=== PATIENT | female | born 1960 | race Caucasian/White ===

== ENCOUNTER 2017-03-15 10:12 | Outpatient (CLI) | payer OTHER ==
[~2017-03-15 10:12] MED LIST: HYDR-569 PO; TRAM50TA2 PO
== END 2017-03-15 23:59 | disposition home or self-care (01) ==
LOC: RAD 10:12
PROVIDERS: ATTEND Family Medicine
DX: M47.812 Spondylosis without myelopathy or radiculopathy, cervical region (principal); M43.12 Spondylolisthesis, cervical region
CPT/HCPCS: 72050

== ENCOUNTER 2017-06-21 10:52 | Outpatient (CLI) | payer OTHER ==
[2017-06-21 12:06] LABS: BASOPHILS % (AUTO) 0.4 % (0-1); EOSINOPHILS # (AUTO) 0.1 X10'3 (0-0.9); EOSINOPHILS % (AUTO) 2.5 % (0-6); HEMATOCRIT 39.6 % (35.0-45.0); HEMOGLOBIN 13.6 g/dl (12.0-16.0); LYMPHOCYTES # (AUTO) 1.7 X10'3 (1.1-4.8); LYMPHOCYTES % (AUTO) 34.4 % (21-51); MEAN CORPUSCULAR HEMOGLOBIN 30.2 PG (27.0-31.0); MEAN CORPUSCULAR HGB CONC 34.4 % (33.0-36.5); MEAN CORPUSCULAR VOLUME 87.7 FL (78-98); MEAN PLATELET VOLUME 7.6 FL (7.4-10.4); MONOCYTES # (AUTO) 0.2 X10'3 (0-0.9); NEUTROPHILS # (AUTO) 2.9 X10'3 (1.8-7.7); NEUTROPHILS % (AUTO) 57.7 % (42-75); PLATELET COUNT 268 X10'3 (140-440); RED BLOOD COUNT 4.52 X10'6 (4.20-5.60); RED CELL DISTRIBUTION WIDTH 13.1 % (11.5-14.5); WHITE BLOOD COUNT 4.9 X10'3 (4.5-11.0)
[2017-06-21 12:45] LABS: ALANINE AMINOTRANSFERASE 46 U/L (12-78); ALBUMIN 3.8 G/DL (3.4-5.0); ALKALINE PHOSPHATASE 83 IU/L (46-116); ANION GAP 9 (8-16); ASPARTATE AMINO TRANSFERASE 27 U/L (10-37); BILIRUBIN,TOTAL 0.5 MG/DL (0.1-1.0); BLOOD UREA NITROGEN 19 MG/DL (7-18); BUN/CREATININE RATIO 22.1 (6.6-38.0); CALCIUM 9.2 MG/DL (8.5-10.1); CHLORIDE 106 MMOL/L (99-107); CREATININE 0.86 MG/DL (0.40-0.90); GLUCOSE 104 MG/DL (70-104); POTASSIUM 4.2 MMOL/L (3.5-5.1); SODIUM 142 MMOL/L (135-145); TOTAL CARBON DIOXIDE 26.8 MMOL/L (24-32); TOTAL PROTEIN 7.8 G/DL (6.4-8.2); eGFR 68 ML/MIN
[2017-06-21 12:57] LABS: C-REACTIVE PROTEIN 0.28 MG/DL (0.0-0.5); CHOL/HDL RATIO 3.8 (0.00-4.99); CHOLESTEROL 191 MG/DL (0-200); HDL CHOLESTEROL 50 MG/DL (35-60); LDL CHOLESTEROL 115 MG/DL (50-100); TRIGLYCERIDES 120 MG/DL (20-135)
[2017-06-22 11:17] LABS: MICROALB/CRT, RATIO <3.3 mg/g creat (0.0-30.0); VITAMIN D, 25-HYDROXY 26.7 ng/mL (30.0-100.0)
== END 2017-06-21 23:59 | disposition home or self-care (01) ==
LOC: LAB 10:52
PROVIDERS: ATTEND Family Medicine
DX: Z00.01 Encounter for general adult medical examination with abnormal findings (principal); K21.9 Gastro-esophageal reflux disease without esophagitis; I10 Essential (primary) hypertension; M47.812 Spondylosis without myelopathy or radiculopathy, cervical region
CPT/HCPCS: 36415; 80053; 80061; 82043; 82306; 82570; 82607; 82746; 84439; 84443; 84550; 85025; 85651; 86140

== ENCOUNTER 2017-11-19 16:19 | Outpatient (CLI) | payer OTHER ==
[~2017-11-19 16:19] MED LIST changes: +HYDR-4383 PO; -HYDR-569 PO
== END 2017-11-19 23:59 | disposition home or self-care (01) ==
LOC: 64 CT 16:19
PROVIDERS: ATTEND Family Medicine
DX: M50.30 Other cervical disc degeneration, unspecified cervical region (principal); M48.02 Spinal stenosis, cervical region; M47.812 Spondylosis without myelopathy or radiculopathy, cervical region
CPT/HCPCS: 72125

== ENCOUNTER 2018-03-12 08:28 | Outpatient (CLI) | payer OTHER ==
[2018-03-12 09:48] LABS: BASOPHILS % (AUTO) 0.4 % (0-1); EOSINOPHILS # (AUTO) 0.1 X10'3 (0-0.9); EOSINOPHILS % (AUTO) 3.8 % (0-6); HEMATOCRIT 37.5 % (35.0-45.0); HEMOGLOBIN 12.8 g/dl (12.0-16.0); LYMPHOCYTES # (AUTO) 1.3 X10'3 (1.1-4.8); LYMPHOCYTES % (AUTO) 34.2 % (21-51); MEAN CORPUSCULAR HEMOGLOBIN 29.8 PG (27.0-31.0); MEAN CORPUSCULAR HGB CONC 34.2 g/dL (33.0-36.5); MEAN PLATELET VOLUME 7.3 FL (7.4-10.4); MONOCYTES # (AUTO) 0.2 X10'3 (0-0.9); MONOCYTES % (AUTO) 6.1 % (2-12); NEUTROPHILS % (AUTO) 55.5 % (42-75); PLATELET COUNT 239 X10'3 (140-440); RED CELL DISTRIBUTION WIDTH 13.3 % (11.5-14.5); WHITE BLOOD COUNT 3.7 X10'3 (4.5-11.0)
[2018-03-12 10:21] LABS: ALANINE AMINOTRANSFERASE 59 U/L (12-78); ALBUMIN 3.8 G/DL (3.4-5.0); ALBUMIN/GLOBULIN RATIO 1.1 (1.1-1.5); ALKALINE PHOSPHATASE 88 IU/L (46-116); ANION GAP 6 (8-16); ASPARTATE AMINO TRANSFERASE 38 U/L (10-37); BILIRUBIN,TOTAL 0.5 MG/DL (0.1-1.0); BLOOD UREA NITROGEN 16 MG/DL (7-18); BUN/CREATININE RATIO 15.7 (6.6-38.0); CALCIUM 8.5 MG/DL (8.5-10.1); CHLORIDE 106 MMOL/L (99-107); CHOL/HDL RATIO 3.1 (0.00-4.99); CHOLESTEROL 175 MG/DL (0-200); CREATINE KINASE 165 U/L (26-192); CREATININE 1.02 MG/DL (0.40-0.90); GLUCOSE 105 MG/DL (70-104); HDL CHOLESTEROL 56 MG/DL (35-60); LDL CHOLESTEROL 110 MG/DL (50-100); POTASSIUM 4.6 MMOL/L (3.5-5.1); SODIUM 141 MMOL/L (135-145); TOTAL CARBON DIOXIDE 29.2 MMOL/L (24-32); TOTAL PROTEIN 7.2 G/DL (6.4-8.2); TRIGLYCERIDES 58 MG/DL (20-135); eGFR 56 ML/MIN
== END 2018-03-12 23:59 | disposition home or self-care (01) ==
LOC: LAB 08:28
PROVIDERS: ATTEND Family Medicine
DX: M51.37 Other intervertebral disc degeneration, lumbosacral region (principal); M48.07 Spinal stenosis, lumbosacral region; M25.551 Pain in right hip; M79.604 Pain in right leg; M79.605 Pain in left leg; M25.552 Pain in left hip; R29.898 Other symptoms and signs involving the musculoskeletal system; E78.00 Pure hypercholesterolemia, unspecified
CPT/HCPCS: 36415; 72110; 73521; 80053; 80061; 82550; 83735; 84550; 85025; 85651; 86140

== ENCOUNTER 2018-05-05 08:40 | Emergency (ER) | payer OTHER ==
[~2018-05-05] VITALS: Ht 172.7 cm; Wt 81.8 kg
[2018-05-05 08:51] VITALS: BP 140/86
== END 2018-05-05 09:42 | disposition home or self-care (01) ==
LOC: ER 08:41
DX: J02.9 Acute pharyngitis, unspecified (principal); J04.0 Acute laryngitis; R09.81 Nasal congestion; E11.9 Type 2 diabetes mellitus without complications; Z90.49 Acquired absence of other specified parts of digestive tract; Z98.890 Other specified postprocedural states; Z88.1 Allergy status to other antibiotic agents
CPT/HCPCS: 93005; 99283

== ENCOUNTER 2019-08-05 11:07 | Emergency (ER) | payer OTHER, BC ==
[~2019-08-05] VITALS: Ht 171.4 cm; Wt 88.6 kg
[~2019-08-05 11:07] MED LIST changes: +ALBU18HF2 INH
[2019-08-05 11:11] VITALS: BP 155/115
[2019-08-05] MEDS ORDERED: ketorolac tromethamine 15mg/ml inj. IM ONE (12:40)
[2019-08-05] MEDS ORDERED: CYCL-1 PO (12:40)
[2019-08-05] MEDS ORDERED: IBUP-1984 PO (12:40)
== END 2019-08-05 13:25 | disposition home or self-care (01) ==
LOC: ER 11:08
DX: R51 Headache (principal); M54.2 Cervicalgia; E11.9 Type 2 diabetes mellitus without complications; F41.9 Anxiety disorder, unspecified; Z90.49 Acquired absence of other specified parts of digestive tract; Z88.0 Allergy status to penicillin; Z88.1 Allergy status to other antibiotic agents; Z79.899 Other long term (current) drug therapy
CPT/HCPCS: 70450; 72125; 96372; 99285; J1885

== ENCOUNTER → 2019-08-28 | Outpatient (CLI) | payer BC, OTHER ==
[~2019-08-28] MED LIST changes: +CYCL-1 PO
[2019-08-28 12:11] LABS: CLARITY,URINE CLEAR (Clear); COLOR,URINE YELLOW (Yellow); GLUCOSE, URINE NEGATIVE (Neg); KETONES,URINE NEGATIVE (Neg); LEUKOCYTE ESTERASE ,URINE NEGATIVE (Neg); NITRITES, URINE NEGATIVE (Neg); OCCULT BLOOD,URINE NEGATIVE (Neg); PROTEIN,URINE NEGATIVE (Neg); UROBILINOGEN,URINE 0.2 E.U/dL (0.2-1.0)
[2019-08-28 12:12] LABS: UA COLLECTION TYPE CLN CATCH MIDSTREAM
[2019-08-28 12:14] LABS: BASOPHILS % (AUTO) 0.4 % (0-1); EOSINOPHILS # (AUTO) 0.2 X10'3 (0-0.9); EOSINOPHILS % (AUTO) 3.5 % (0-6); HEMATOCRIT 39.4 % (35.0-45.0); HEMOGLOBIN 13.3 g/dl (12.0-16.0); LYMPHOCYTES # (AUTO) 1.7 X10'3 (1.1-4.8); LYMPHOCYTES % (AUTO) 31.8 % (21-51); MEAN CORPUSCULAR HEMOGLOBIN 29.6 PG (27.0-31.0); MEAN CORPUSCULAR HGB CONC 33.8 g/dL (33.0-36.5); MEAN CORPUSCULAR VOLUME 87.7 FL (78-98); MEAN PLATELET VOLUME 7.8 FL (7.4-10.4); MONOCYTES # (AUTO) 0.3 X10'3 (0-0.9); MONOCYTES % (AUTO) 5.1 % (2-12); NEUTROPHILS # (AUTO) 3.1 X10'3 (1.8-7.7); NEUTROPHILS % (AUTO) 59.2 % (42-75); PLATELET COUNT 248 X10'3 (140-440); RED BLOOD COUNT 4.49 X10'6 (4.20-5.60); RED CELL DISTRIBUTION WIDTH 12.8 % (11.5-14.5); WHITE BLOOD COUNT 5.2 X10'3 (4.5-11.0)
[2019-08-28 12:39] LABS: ALANINE AMINOTRANSFERASE 46 U/L (12-78); ALBUMIN 3.9 G/DL (3.4-5.0); ALBUMIN/GLOBULIN RATIO 1.1 (1.1-1.5); ALKALINE PHOSPHATASE 66 IU/L (46-116); ANION GAP 7 (8-16); ASPARTATE AMINO TRANSFERASE 28 U/L (10-37); BILIRUBIN,TOTAL 0.6 MG/DL (0.1-1.0); BLOOD UREA NITROGEN 15 MG/DL (7-18); BUN/CREATININE RATIO 12.8 (6.6-38.0); C-REACTIVE PROTEIN 0.14 MG/DL (0.0-0.5); CALCIUM 8.8 MG/DL (8.5-10.1); CHLORIDE 107 MMOL/L (99-107); CHOL/HDL RATIO 4.4 (0.00-4.99); CHOLESTEROL 199 MG/DL (0-200); CREATININE 1.17 MG/DL (0.40-0.90); GLUCOSE 115 MG/DL (70-104); HDL CHOLESTEROL 45 MG/DL (35-60); LDL CHOLESTEROL 119 MG/DL (50-100); POTASSIUM 4.2 MMOL/L (3.5-5.1); SODIUM 142 MMOL/L (135-145); TOTAL PROTEIN 7.4 G/DL (6.4-8.2); TRIGLYCERIDES 181 MG/DL (20-135); eGFR 47 ML/MIN
== END | disposition home or self-care (01) ==
LOC: LAB 11:28
PROVIDERS: ATTEND Family Medicine
DX: Z00.00 Encounter for general adult medical examination without abnormal findings (principal); E78.00 Pure hypercholesterolemia, unspecified; I12.9 Hypertensive chronic kidney disease with stage 1 through stage 4 chronic kidney disease, or unspecified chronic kidney disease; N18.1 Chronic kidney disease, stage 1; E55.9 Vitamin D deficiency, unspecified; K21.9 Gastro-esophageal reflux disease without esophagitis; M54.5 Low back pain; M47.812 Spondylosis without myelopathy or radiculopathy, cervical region
CPT/HCPCS: 36415; 80053; 80061; 81003; 82306; 82607; 82746; 84439; 84443; 85025; 85651; 86140

== ENCOUNTER 2019-10-09 09:23 | Day surgery (SDC) | payer BC ==
[~2019-10-09] VITALS: Ht 172.7 cm; Wt 81.8 kg
[2019-10-09 09:29] VITALS: BP 133/72
[2019-10-09] MEDS ORDERED: BUS15T PO (09:39)
[2019-10-09] MEDS ORDERED: PARO10TA85 PO (09:40)
[2019-10-09] MEDS ORDERED: OMEP-50 PO (09:41)
[2019-10-09] MEDS ORDERED: GABA-534 PO (09:41)
[2019-10-09] MEDS ORDERED: SOY155CA (09:42)
[2019-10-09] MEDS ORDERED: LACT1CAP92 PO (09:42)
[2019-10-09] MEDS ORDERED: CHOL1POW2 PO (09:43)
[2019-10-09] MEDS ORDERED: fentaNYL/PF 50MCG/1 ML 2ML syringe ONE (09:52)
[2019-10-09] MEDS ORDERED: MIDAZolam 5mg/5ml vial ONE (09:53)
[2019-10-09 11:06] VITALS: BP 121/68
[2019-10-09 11:16] VITALS: BP 124/63
[2019-10-09 11:26] VITALS: BP 125/78
== END 2019-10-09 11:50 | disposition home or self-care (01) ==
LOC: GI LAB 09:23
PROVIDERS: ATTEND Internal Medicine Gastroenterology
DX: Z12.11 Encounter for screening for malignant neoplasm of colon (principal); C20 Malignant neoplasm of rectum; K63.89 Other specified diseases of intestine; K64.8 Other hemorrhoids
CPT/HCPCS: 45380; 99152; 99153; J2250; J3010; J7040; A4620

== ENCOUNTER 2019-11-25 08:28 | Outpatient (CLI) | payer BC ==
[~2019-11-25 08:28] MED LIST changes: -ALBU18HF2 INH; +BUS15T PO; +CHOL1POW2 PO; -CYCL-1 PO; +GABA-534 PO; -HYDR-4383 PO; +LACT1CAP92 PO; +OMEP-50 PO; +PARO10TA85 PO; +SOY155CA; -TRAM50TA2 PO
[2019-11-25 09:16] LABS: BASOPHILS % (AUTO) 0.6 % (0-1); EOSINOPHILS # (AUTO) 0.1 X10'3 (0-0.9); EOSINOPHILS % (AUTO) 2.9 % (0-6); HEMATOCRIT 39.3 % (35.0-45.0); HEMOGLOBIN 13.1 g/dl (12.0-16.0); LYMPHOCYTES # (AUTO) 1.4 X10'3 (1.1-4.8); LYMPHOCYTES % (AUTO) 27.9 % (21-51); MEAN CORPUSCULAR HEMOGLOBIN 29.4 PG (27.0-31.0); MEAN CORPUSCULAR HGB CONC 33.5 g/dL (33.0-36.5); MEAN PLATELET VOLUME 7.5 FL (7.4-10.4); MONOCYTES # (AUTO) 0.3 X10'3 (0-0.9); MONOCYTES % (AUTO) 5.9 % (2-12); NEUTROPHILS # (AUTO) 3.2 X10'3 (1.8-7.7); NEUTROPHILS % (AUTO) 62.7 % (42-75); PLATELET COUNT 269 X10'3 (140-440); RED BLOOD COUNT 4.47 X10'6 (4.20-5.60); RED CELL DISTRIBUTION WIDTH 13.3 % (11.5-14.5); WHITE BLOOD COUNT 5.1 X10'3 (4.5-11.0)
[2019-11-25 09:25] LABS: ALANINE AMINOTRANSFERASE 40 U/L (12-78); ALBUMIN 3.8 G/DL (3.4-5.0); ALBUMIN/GLOBULIN RATIO 1.1 (1.1-1.5); ALKALINE PHOSPHATASE 72 IU/L (46-116); ANION GAP 5 (8-16); ASPARTATE AMINO TRANSFERASE 25 U/L (10-37); BILIRUBIN,TOTAL 0.5 MG/DL (0.1-1.0); BLOOD UREA NITROGEN 15 MG/DL (7-18); BUN/CREATININE RATIO 12.3 (6.6-38.0); CALCIUM 9.3 MG/DL (8.5-10.1); CHLORIDE 105 MMOL/L (99-107); CREATININE 1.22 MG/DL (0.40-0.90); GLUCOSE 120 MG/DL (70-104); POTASSIUM 4.2 MMOL/L (3.5-5.1); SODIUM 142 MMOL/L (135-145); TOTAL CARBON DIOXIDE 31.6 MMOL/L (24-32); TOTAL PROTEIN 7.4 G/DL (6.4-8.2); eGFR 45 ML/MIN
[2019-11-25 11:25] LABS: HIV ANTIBODY 1&2 RAPID NON-REACTIVE (Neg)
[2019-11-26 12:24] LABS: HBSAG SCREEN Negative (Negative); HEP B CORE AB, TOT Negative (Negative)
== END 2019-11-25 23:59 | disposition home or self-care (01) ==
LOC: LAB 08:28
PROVIDERS: ATTEND Internal Medicine Hematology & Oncology
DX: C21.1 Malignant neoplasm of anal canal (principal)
CPT/HCPCS: 36415; 80053; 85025; 86703; 86704; 86705; 86706; 87340

== ENCOUNTER → 2019-12-11 | Day surgery (SDC) | payer BC ==
[~2019-12-11] VITALS: Ht 172.7 cm; Wt 87.6 kg
[2019-12-11 09:06] LABS: BASOPHILS % (AUTO) 0.7 % (0-1); EOSINOPHILS # (AUTO) 0.2 X10'3 (0-0.9); EOSINOPHILS % (AUTO) 3.7 % (0-6); HEMATOCRIT 37.5 % (35.0-45.0); HEMOGLOBIN 12.5 g/dl (12.0-16.0); LYMPHOCYTES # (AUTO) 1.5 X10'3 (1.1-4.8); LYMPHOCYTES % (AUTO) 29.2 % (21-51); MEAN CORPUSCULAR HEMOGLOBIN 29.5 PG (27.0-31.0); MEAN CORPUSCULAR HGB CONC 33.4 g/dL (33.0-36.5); MEAN CORPUSCULAR VOLUME 88.4 FL (78-98); MEAN PLATELET VOLUME 7.7 FL (7.4-10.4); MONOCYTES # (AUTO) 0.3 X10'3 (0-0.9); MONOCYTES % (AUTO) 6.1 % (2-12); NEUTROPHILS # (AUTO) 3.1 X10'3 (1.8-7.7); NEUTROPHILS % (AUTO) 60.3 % (42-75); PLATELET COUNT 247 X10'3 (140-440); RED BLOOD COUNT 4.25 X10'6 (4.20-5.60); WHITE BLOOD COUNT 5.2 X10'3 (4.5-11.0)
[2019-12-11 09:27] LABS: ALANINE AMINOTRANSFERASE 30 U/L (12-78); ALBUMIN 3.5 G/DL (3.4-5.0); ALKALINE PHOSPHATASE 64 IU/L (46-116); ANION GAP 6 (8-16); ASPARTATE AMINO TRANSFERASE 18 U/L (10-37); BILIRUBIN,TOTAL 0.4 MG/DL (0.1-1.0); BLOOD UREA NITROGEN 19 MG/DL (7-18); BUN/CREATININE RATIO 17.6 (6.6-38.0); CHLORIDE 104 MMOL/L (99-107); CREATININE 1.08 MG/DL (0.40-0.90); GLUCOSE 129 MG/DL (70-104); SODIUM 138 MMOL/L (135-145); TOTAL CARBON DIOXIDE 28.5 MMOL/L (24-32); TOTAL PROTEIN 7.1 G/DL (6.4-8.2); eGFR 52 ML/MIN
== END | disposition home or self-care (01) ==
LOC: SSTAY O 06:54
PROVIDERS: ATTEND Internal Medicine Hematology & Oncology
DX: C21.1 Malignant neoplasm of anal canal (principal); Z88.1 Allergy status to other antibiotic agents
CPT/HCPCS: 36415; 36573; 80053; 85025

== ENCOUNTER 2020-02-19 14:25 | Outpatient (CLI) | payer BC | END 2020-02-19 23:59 | disposition home or self-care (01) | LOC: CARD DIAG 14:25 | PROVIDERS: ATTEND Internal Medicine Hematology & Oncology | DX: C21.1 Malignant neoplasm of anal canal (principal); I08.3 Combined rheumatic disorders of mitral, aortic and tricuspid valves | CPT/HCPCS: 93306 ==

== ENCOUNTER 2020-03-16 09:19 | Outpatient (CLI) | payer BC | END 2020-03-16 23:59 | disposition home or self-care (01) | LOC: RT 09:19 | PROVIDERS: ATTEND Internal Medicine Hematology & Oncology | DX: R06.02 Shortness of breath (principal); C21.1 Malignant neoplasm of anal canal | CPT/HCPCS: 94010; 94727; 94729 ==

== ENCOUNTER 2020-05-20 13:31 | Outpatient (CLI) | payer BC ==
[2020-05-20 14:00] LABS: BASOPHILS % (AUTO) 0.5 % (0-1); EOSINOPHILS # (AUTO) 0.5 X10'3 (0-0.9); EOSINOPHILS % (AUTO) 12.2 % (0-6); HEMATOCRIT 37.8 % (35.0-45.0); HEMOGLOBIN 12.7 g/dl (12.0-16.0); LYMPHOCYTES % (AUTO) 22.7 % (21-51); MEAN CORPUSCULAR HEMOGLOBIN 30.9 PG (27.0-31.0); MEAN CORPUSCULAR HGB CONC 33.6 g/dL (33.0-36.5); MEAN CORPUSCULAR VOLUME 91.9 FL (78-98); MEAN PLATELET VOLUME 7.2 FL (7.4-10.4); MONOCYTES # (AUTO) 0.3 X10'3 (0-0.9); MONOCYTES % (AUTO) 6.7 % (2-12); NEUTROPHILS # (AUTO) 2.4 X10'3 (1.8-7.7); NEUTROPHILS % (AUTO) 57.9 % (42-75); PLATELET COUNT 224 X10'3 (140-440); RED BLOOD COUNT 4.12 X10'6 (4.20-5.60); RED CELL DISTRIBUTION WIDTH 12.8 % (11.5-14.5); WHITE BLOOD COUNT 4.2 X10'3 (4.5-11.0)
[2020-05-20 14:14] LABS: ALANINE AMINOTRANSFERASE 27 U/L (12-78); ALBUMIN 3.7 G/DL (3.4-5.0); ALBUMIN/GLOBULIN RATIO 1.1 (1.1-1.5); ALKALINE PHOSPHATASE 74 IU/L (46-116); ANION GAP 6 (8-16); ASPARTATE AMINO TRANSFERASE 19 U/L (10-37); BILIRUBIN,TOTAL 0.3 MG/DL (0.1-1.0); BLOOD UREA NITROGEN 19 MG/DL (7-18); BUN/CREATININE RATIO 16.7 (6.6-38.0); CALCIUM 9.1 MG/DL (8.5-10.1); CHLORIDE 106 MMOL/L (99-107); CREATININE 1.14 MG/DL (0.40-0.90); GLUCOSE 123 MG/DL (70-104); POTASSIUM 4.5 MMOL/L (3.5-5.1); SODIUM 141 MMOL/L (135-145); TOTAL CARBON DIOXIDE 28.7 MMOL/L (24-32); TOTAL PROTEIN 7.1 G/DL (6.4-8.2); eGFR 49 ML/MIN
== END 2020-05-20 23:59 | disposition home or self-care (01) ==
LOC: LAB 13:31
PROVIDERS: ATTEND Internal Medicine Hematology & Oncology
DX: C21.1 Malignant neoplasm of anal canal (principal)
CPT/HCPCS: 36415; 80053; 82378; 85025

== ENCOUNTER 2020-08-19 10:35 | Outpatient (CLI) | payer BC ==
[2020-08-19 11:18] LABS: EOSINOPHILS # (AUTO) 0.1 X10'3 (0-0.9); HEMOGLOBIN 12.9 g/dl (12.0-16.0); MONOCYTES # (AUTO) 0.2 X10'3 (0-0.9); NEUTROPHILS # (AUTO) 2.4 X10'3 (1.8-7.7)
[2020-08-19 11:20] LABS: BASOPHILS % (AUTO) 0.7 % (0-1); EOSINOPHILS % (AUTO) 2.4 % (0-6); HEMATOCRIT 36.7 % (35.0-45.0); LYMPHOCYTES % (AUTO) 26.4 % (21-51); MEAN CORPUSCULAR HEMOGLOBIN 31.5 PG (27.0-31.0); MEAN CORPUSCULAR HGB CONC 35.1 g/dL (33.0-36.5); MEAN CORPUSCULAR VOLUME 89.7 FL (78-98); MEAN PLATELET VOLUME 7.2 FL (7.4-10.4); MONOCYTES % (AUTO) 6.1 % (2-12); NEUTROPHILS % (AUTO) 64.4 % (42-75); PLATELET COUNT 195 X10'3 (140-440); RED CELL DISTRIBUTION WIDTH 13.8 % (11.5-14.5); WHITE BLOOD COUNT 3.8 X10'3 (4.5-11.0)
[2020-08-19 11:34] LABS: ALANINE AMINOTRANSFERASE 26 U/L (12-78); ALBUMIN 3.8 G/DL (3.4-5.0); ALBUMIN/GLOBULIN RATIO 1.1 (1.1-1.5); ALKALINE PHOSPHATASE 63 IU/L (46-116); ANION GAP 8 (8-16); ASPARTATE AMINO TRANSFERASE 18 U/L (10-37); BILIRUBIN,TOTAL 0.5 MG/DL (0.1-1.0); BLOOD UREA NITROGEN 20 MG/DL (7-18); BUN/CREATININE RATIO 19.2 (6.6-38.0); CHLORIDE 108 MMOL/L (99-107); CREATININE 1.04 MG/DL (0.40-0.90); GLUCOSE 97 MG/DL (70-104); SODIUM 144 MMOL/L (135-145); TOTAL CARBON DIOXIDE 28.3 MMOL/L (24-32); TOTAL PROTEIN 7.4 G/DL (6.4-8.2); eGFR 54 ML/MIN
== END 2020-08-19 23:59 | disposition home or self-care (01) ==
LOC: LAB 10:35
DX: C21.1 Malignant neoplasm of anal canal (principal)
CPT/HCPCS: 80053; 82378; 85025

== ENCOUNTER 2020-10-31 09:10 | Day surgery (SDC) | payer BC ==
[~2020-10-31] VITALS: Ht 172.7 cm; Wt 83.1 kg
[2020-10-31] MEDS ORDERED: fentaNYL/PF 50MCG/1 ML 2ML syringe ONE (09:20)
[2020-10-31] MEDS ORDERED: MIDAZolam 1 MG/ML 5ML VIAL ONE (09:20)
[2020-10-31 09:42] VITALS: BP 155/89
[2020-10-31 10:50] VITALS: BP 129/77
[2020-10-31 10:59] VITALS: BP 132/68
[2020-10-31 11:09] VITALS: BP 125/66
[2020-10-31 11:19] VITALS: BP 136/74
== END 2020-10-31 11:35 | disposition home or self-care (01) ==
LOC: GI LAB 09:10
PROVIDERS: ATTEND Internal Medicine Gastroenterology
DX: Z09 Encounter for follow-up examination after completed treatment for conditions other than malignant neoplasm (principal); D12.0 Benign neoplasm of cecum; Z85.048 Personal history of other malignant neoplasm of rectum, rectosigmoid junction, and anus
CPT/HCPCS: 45390; 99152; 99153; C1773; J2250; J3010; J7040; Z7512; 45335; 45385; A4620

== ENCOUNTER → 2020-12-05 | Outpatient (CLI) | payer BC ==
[~2020-12-05] MED LIST changes: -CHOL1POW2 PO; -LACT1CAP92 PO; -SOY155CA
[2020-12-05 12:52] LABS: BASOPHILS % (AUTO) 0.3 % (0-1); EOSINOPHILS # (AUTO) 0.1 X10'3 (0-0.9); EOSINOPHILS % (AUTO) 1.9 % (0-6); HEMATOCRIT 34.9 % (35.0-45.0); HEMOGLOBIN 12.2 g/dl (12.0-16.0); LYMPHOCYTES # (AUTO) 0.9 X10'3 (1.1-4.8); LYMPHOCYTES % (AUTO) 23.7 % (21-51); MEAN CORPUSCULAR HEMOGLOBIN 31.4 PG (27.0-31.0); MEAN CORPUSCULAR VOLUME 89.8 FL (78-98); MEAN PLATELET VOLUME 6.8 FL (7.4-10.4); MONOCYTES # (AUTO) 0.2 X10'3 (0-0.9); NEUTROPHILS # (AUTO) 2.7 X10'3 (1.8-7.7); NEUTROPHILS % (AUTO) 69.1 % (42-75); PLATELET COUNT 218 X10'3 (140-440); RED BLOOD COUNT 3.88 X10'6 (4.20-5.60); RED CELL DISTRIBUTION WIDTH 13.2 % (11.5-14.5); WHITE BLOOD COUNT 3.9 X10'3 (4.5-11.0)
[2020-12-05 13:07] LABS: ALANINE AMINOTRANSFERASE 31 U/L (12-78); ALBUMIN 3.5 G/DL (3.4-5.0); ALBUMIN/GLOBULIN RATIO 0.9 (1.1-1.5); ALKALINE PHOSPHATASE 71 IU/L (46-116); ANION GAP 7 (8-16); ASPARTATE AMINO TRANSFERASE 19 U/L (10-37); BILIRUBIN,TOTAL 0.4 MG/DL (0.1-1.0); BLOOD UREA NITROGEN 15 MG/DL (7-18); BUN/CREATININE RATIO 13.6 (6.6-38.0); CALCIUM 8.6 MG/DL (8.5-10.1); CHLORIDE 107 MMOL/L (99-107); GLUCOSE 111 MG/DL (70-104); POTASSIUM 4.2 MMOL/L (3.5-5.1); SODIUM 144 MMOL/L (135-145); TOTAL CARBON DIOXIDE 30.3 MMOL/L (24-32); TOTAL PROTEIN 7.2 G/DL (6.4-8.2); eGFR 50 ML/MIN
== END | disposition home or self-care (01) ==
LOC: LAB 12:24
PROVIDERS: ATTEND Internal Medicine Hematology & Oncology
DX: C21.1 Malignant neoplasm of anal canal (principal)
CPT/HCPCS: 36415; 80053; 82378; 85025

== ENCOUNTER 2021-03-06 09:21 | Emergency (ER) | payer BC, OTHER ==
[~2021-03-06] VITALS: Ht 172.7 cm; Wt 86.9 kg
[2021-03-06 09:27] VITALS: BP 164/88
[2021-03-06] MEDS ORDERED: CYCL-1 PO (10:00)
[2021-03-06] MEDS ORDERED: ketorolac tromethamine 15mg/ml inj. IM ONE (10:05)
== END 2021-03-06 10:28 | disposition home or self-care (01) ==
LOC: ER 09:22
DX: S39.012A Strain of muscle, fascia and tendon of lower back, initial encounter (principal); M54.89 Other dorsalgia; R20.0 Anesthesia of skin; E11.9 Type 2 diabetes mellitus without complications; F41.9 Anxiety disorder, unspecified; Z90.49 Acquired absence of other specified parts of digestive tract; Z98.890 Other specified postprocedural states; Z88.1 Allergy status to other antibiotic agents; Z88.8 Allergy status to other drugs, medicaments and biological substances; Z79.899 Other long term (current) drug therapy; X58.XXXA Exposure to other specified factors, initial encounter; Y93.89 Activity, other specified; Y92.89 Other specified places as the place of occurrence of the external cause; Y99.8 Other external cause status
CPT/HCPCS: 96372; 99283; J1885

== ENCOUNTER 2021-03-21 05:45 | Outpatient (CLI) | payer BC ==
[~2021-03-21 05:45] MED LIST changes: +CYCL-1 PO; -OMEP-50 PO; +OMEP20CA16 PO
[2021-03-21 08:27] LABS: BASOPHILS % (AUTO) 0.2 % (0-1); EOSINOPHILS % (AUTO) 1.2 % (0-6); HEMATOCRIT 35.3 % (35.0-45.0); HEMOGLOBIN 12.4 g/dl (12.0-16.0); LYMPHOCYTES # (AUTO) 0.7 X10'3 (1.1-4.8); MEAN CORPUSCULAR HEMOGLOBIN 30.9 PG (27.0-31.0); MEAN CORPUSCULAR HGB CONC 35.1 g/dL (33.0-36.5); MEAN PLATELET VOLUME 6.8 FL (7.4-10.4); MONOCYTES # (AUTO) 0.2 X10'3 (0-0.9); MONOCYTES % (AUTO) 6.2 % (2-12); NEUTROPHILS # (AUTO) 2.7 X10'3 (1.8-7.7); NEUTROPHILS % (AUTO) 73.4 % (42-75); PLATELET COUNT 256 X10'3 (140-440); RED BLOOD COUNT 4.01 X10'6 (4.20-5.60); RED CELL DISTRIBUTION WIDTH 12.7 % (11.5-14.5); WHITE BLOOD COUNT 3.7 X10'3 (4.5-11.0)
[2021-03-21 10:48] LABS: ALANINE AMINOTRANSFERASE 57 U/L (12-78); ALBUMIN 3.7 G/DL (3.4-5.0); ALKALINE PHOSPHATASE 95 IU/L (46-116); ANION GAP 8 (8-16); ASPARTATE AMINO TRANSFERASE 21 U/L (10-37); BILIRUBIN,TOTAL 0.7 MG/DL (0.1-1.0); BLOOD UREA NITROGEN 16 MG/DL (7-18); BUN/CREATININE RATIO 17.2 (6.6-38.0); CHLORIDE 107 MMOL/L (99-107); CREATININE 0.93 MG/DL (0.40-0.90); GLUCOSE 111 MG/DL (70-104); POTASSIUM 4.6 MMOL/L (3.5-5.1); SODIUM 144 MMOL/L (135-145); TOTAL PROTEIN 7.3 G/DL (6.4-8.2); eGFR 61 ML/MIN
== END 2021-03-21 23:59 | disposition home or self-care (01) ==
LOC: LAB 05:45
PROVIDERS: ATTEND Internal Medicine Hematology & Oncology
DX: C21.1 Malignant neoplasm of anal canal (principal)
CPT/HCPCS: 36415; 80053; 82378; 85025

== ENCOUNTER 2021-06-20 05:42 | Outpatient (CLI) | payer BC ==
[2021-06-20 14:50] LABS: BASOPHILS % (AUTO) 0.4 % (0-1); EOSINOPHILS # (AUTO) 0.1 X10'3 (0-0.9); EOSINOPHILS % (AUTO) 3.4 % (0-6); HEMATOCRIT 35.4 % (35.0-45.0); LYMPHOCYTES % (AUTO) 24.3 % (21-51); MEAN CORPUSCULAR HEMOGLOBIN 30.3 PG (27.0-31.0); MEAN CORPUSCULAR HGB CONC 33.8 g/dL (33.0-36.5); MEAN CORPUSCULAR VOLUME 89.4 FL (78-98); MEAN PLATELET VOLUME 7.1 FL (7.4-10.4); MONOCYTES # (AUTO) 0.3 X10'3 (0-0.9); MONOCYTES % (AUTO) 6.4 % (2-12); NEUTROPHILS # (AUTO) 2.6 X10'3 (1.8-7.7); NEUTROPHILS % (AUTO) 65.5 % (42-75); PLATELET COUNT 247 X10'3 (140-440); RED BLOOD COUNT 3.96 X10'6 (4.20-5.60); RED CELL DISTRIBUTION WIDTH 13.6 % (11.5-14.5)
[2021-06-20 15:02] LABS: ALANINE AMINOTRANSFERASE 43 U/L (12-78); ALBUMIN/GLOBULIN RATIO 1.2 (1.1-1.5); ALKALINE PHOSPHATASE 75 IU/L (46-116); ANION GAP 6 (8-16); ASPARTATE AMINO TRANSFERASE 23 U/L (10-37); BILIRUBIN,TOTAL 0.3 MG/DL (0.1-1.0); BLOOD UREA NITROGEN 18 MG/DL (7-18); BUN/CREATININE RATIO 17.6 (6.6-38.0); CALCIUM 9.2 MG/DL (8.5-10.1); CHLORIDE 108 MMOL/L (99-107); CREATININE 1.02 MG/DL (0.40-0.90); GLUCOSE 129 MG/DL (70-104); POTASSIUM 4.2 MMOL/L (3.5-5.1); SODIUM 143 MMOL/L (135-145); TOTAL PROTEIN 7.3 G/DL (6.4-8.2); eGFR 55 ML/MIN
== END 2021-06-20 23:59 | disposition home or self-care (01) ==
LOC: LAB 05:42
PROVIDERS: ATTEND Internal Medicine Hematology & Oncology
DX: C21.1 Malignant neoplasm of anal canal (principal)
CPT/HCPCS: 36415; 80053; 82378; 85025

== ENCOUNTER 2021-07-21 11:20 | Outpatient (CLI) | payer BC | END 2021-07-21 23:59 | disposition home or self-care (01) | LOC: LAB 11:20 | PROVIDERS: ATTEND Internal Medicine Hematology & Oncology | DX: C21.1 Malignant neoplasm of anal canal (principal) | CPT/HCPCS: 36415; 82378 ==

== ENCOUNTER 2021-09-29 08:59 | Outpatient (CLI) | payer BC ==
[2021-09-29 10:01] LABS: BASOPHILS % (AUTO) 0.3 % (0-1); EOSINOPHILS # (AUTO) 0.1 X10'3 (0-0.9); EOSINOPHILS % (AUTO) 2.5 % (0-6); HEMATOCRIT 37.1 % (35.0-45.0); HEMOGLOBIN 12.6 g/dl (12.0-16.0); LYMPHOCYTES # (AUTO) 0.7 X10'3 (1.1-4.8); LYMPHOCYTES % (AUTO) 23.5 % (21-51); MEAN CORPUSCULAR HEMOGLOBIN 30.9 PG (27.0-31.0); MEAN CORPUSCULAR HGB CONC 34.1 g/dL (33.0-36.5); MEAN CORPUSCULAR VOLUME 90.7 FL (78-98); MONOCYTES # (AUTO) 0.2 X10'3 (0-0.9); MONOCYTES % (AUTO) 5.6 % (2-12); NEUTROPHILS # (AUTO) 2.2 X10'3 (1.8-7.7); NEUTROPHILS % (AUTO) 68.1 % (42-75); PLATELET COUNT 233 X10'3 (140-440); RED BLOOD COUNT 4.09 X10'6 (4.20-5.60); RED CELL DISTRIBUTION WIDTH 13.7 % (11.5-14.5); WHITE BLOOD COUNT 3.2 X10'3 (4.5-11.0)
[2021-09-29 10:22] LABS: ALANINE AMINOTRANSFERASE 67 U/L (12-78); ALBUMIN 3.8 G/DL (3.4-5.0); ALBUMIN/GLOBULIN RATIO 1.1 (1.1-1.5); ALKALINE PHOSPHATASE 99 IU/L (46-116); ANION GAP 9 (8-16); ASPARTATE AMINO TRANSFERASE 21 U/L (10-37); BILIRUBIN,TOTAL 0.3 MG/DL (0.1-1.0); BLOOD UREA NITROGEN 18 MG/DL (7-18); BUN/CREATININE RATIO 15.1 (6.6-38.0); C-REACTIVE PROTEIN 0.38 MG/DL (0.0-0.5); CALCIUM 9.1 MG/DL (8.5-10.1); CHLORIDE 105 MMOL/L (99-107); CHOL/HDL RATIO 4.4 (0.00-4.99); CHOLESTEROL 212 MG/DL (0-200); CREATININE 1.19 MG/DL (0.40-0.90); GLUCOSE 144 MG/DL (70-104); HDL CHOLESTEROL 48 MG/DL (35-60); LDL CHOLESTEROL 114 MG/DL (50-100); POTASSIUM 3.8 MMOL/L (3.5-5.1); SODIUM 143 MMOL/L (135-145); TOTAL CARBON DIOXIDE 28.6 MMOL/L (24-32); TOTAL PROTEIN 7.4 G/DL (6.4-8.2); TRIGLYCERIDES 206 MG/DL (20-135); eGFR 46 ML/MIN
[2021-09-30 13:11] LABS: HEPATITIS C ANTIBODY <0.1 s/co ratio (0.0-0.9); MICROALB/CRT, RATIO 5 mg/g creat (0-29)
== END 2021-09-29 23:59 | disposition home or self-care (01) ==
LOC: LAB 08:59
PROVIDERS: ATTEND Family Medicine
DX: Z11.59 Encounter for screening for other viral diseases (principal); E78.5 Hyperlipidemia, unspecified; R53.83 Other fatigue; K21.9 Gastro-esophageal reflux disease without esophagitis; I10 Essential (primary) hypertension; E55.9 Vitamin D deficiency, unspecified
CPT/HCPCS: 36415; 80053; 80061; 82043; 82306; 82570; 82607; 82746; 84439; 84443; 85025; 86140; 86803

== ENCOUNTER 2021-09-29 09:06 | Outpatient (CLI) | payer BC | END 2021-09-29 23:59 | disposition home or self-care (01) | LOC: LAB 09:06 | PROVIDERS: ATTEND Internal Medicine Hematology & Oncology | DX: C21.1 Malignant neoplasm of anal canal (principal) | CPT/HCPCS: 36415; 82378 ==

== ENCOUNTER 2021-12-14 15:16 | Outpatient (CLI) | payer BC | END 2021-12-14 23:59 | disposition home or self-care (01) | LOC: VAS 15:16 | PROVIDERS: ATTEND Family Medicine | DX: M79.661 Pain in right lower leg (principal) | CPT/HCPCS: 93971 ==

== ENCOUNTER 2021-12-25 05:44 | Emergency (ER) | payer BC ==
[~2021-12-25] VITALS: Ht 172.7 cm; Wt 89.1 kg
--- NOTE | 2021-12-25 06:30 | NUR ---
Pt is awake and alert. is at the bedside. C/O severe FREEMAN and mid chest pain. Chest pain is worse with deep inspiration. Pt is slightly diaphoretic.
[2021-12-25] MEDS ORDERED: morphine 4 MG/ML inj SYRINge IV ONE (06:55)
[2021-12-25] MEDS ORDERED: ondansetron/PF 4mg/2ml inj IV ONE (06:55)
[2021-12-25 07:14] LABS: BASOPHILS % (AUTO) 0.2 % (0-1); EOSINOPHILS # (AUTO) 0.1 X10'3 (0-0.9); EOSINOPHILS % (AUTO) 0.7 % (0-6); HEMATOCRIT 36.9 % (35.0-45.0); HEMOGLOBIN 12.7 g/dl (12.0-16.0); LYMPHOCYTES # (AUTO) 0.7 X10'3 (1.1-4.8); LYMPHOCYTES % (AUTO) 7.9 % (21-51); MEAN CORPUSCULAR HEMOGLOBIN 31.2 PG (27.0-31.0); MEAN CORPUSCULAR HGB CONC 34.4 g/dL (33.0-36.5); MEAN CORPUSCULAR VOLUME 90.5 FL (78-98); MEAN PLATELET VOLUME 6.9 FL (7.4-10.4); MONOCYTES # (AUTO) 0.4 X10'3 (0-0.9); MONOCYTES % (AUTO) 4.8 % (2-12); NEUTROPHILS # (AUTO) 7.6 X10'3 (1.8-7.7); NEUTROPHILS % (AUTO) 86.4 % (42-75); PLATELET COUNT 224 X10'3 (140-440); RED BLOOD COUNT 4.08 X10'6 (4.20-5.60); RED CELL DISTRIBUTION WIDTH 12.7 % (11.5-14.5); WHITE BLOOD COUNT 8.8 X10'3 (4.5-11.0)
[2021-12-25 07:29] LABS: ALANINE AMINOTRANSFERASE 55 U/L (12-78); ALBUMIN 3.7 G/DL (3.4-5.0); ALKALINE PHOSPHATASE 97 IU/L (46-116); ANION GAP 11 (8-16); ASPARTATE AMINO TRANSFERASE 39 U/L (10-37); BILIRUBIN,TOTAL 0.5 MG/DL (0.1-1.0); BLOOD UREA NITROGEN 20 MG/DL (7-18); BUN/CREATININE RATIO 18.2 (6.6-38.0); CALCIUM 9.4 MG/DL (8.5-10.1); CHLORIDE 102 MMOL/L (99-107); GLUCOSE 136 MG/DL (70-104); SODIUM 138 MMOL/L (135-145); TOTAL CARBON DIOXIDE 24.9 MMOL/L (24-32); TOTAL PROTEIN 7.5 G/DL (6.4-8.2); eGFR 50 ML/MIN
[2021-12-25] MEDS ORDERED: normal saline 1000ml 1,000 ML IV ONE (09:35)
[2021-12-25 10:00] VITALS: BP 128/77
--- NOTE | 2021-12-25 10:45 | NUR ---
Pt and given and understands d/c instructions. IV d/c'd, catheter was intact. Ambulatory with a steady gait.
== END 2021-12-25 10:49 | disposition home or self-care (01) ==
LOC: ER 05:45
DX: E86.0 Dehydration (principal); R51.9 Headache, unspecified; R07.89 Other chest pain; E11.9 Type 2 diabetes mellitus without complications; F41.9 Anxiety disorder, unspecified; N18.9 Chronic kidney disease, unspecified; Z90.49 Acquired absence of other specified parts of digestive tract; Z98.890 Other specified postprocedural states; Z88.1 Allergy status to other antibiotic agents; Z88.8 Allergy status to other drugs, medicaments and biological substances; Z79.899 Other long term (current) drug therapy
CPT/HCPCS: 36415; 70450; 71045; 80053; 83880; 84484; 85025; 93005; 96361; 96374; 96375; 99285; J2270; J2405; J7030

== ENCOUNTER 2022-07-12 09:42 | Outpatient (CLI) | payer OTHER, MEDICAID ==
[~2022-07-12 09:42] MED LIST changes: +PARO-153 PO; -PARO10TA85 PO
[2022-07-12 10:20] LABS: BASOPHILS % (AUTO) 0.7 % (0-1); EOSINOPHILS # (AUTO) 0.5 X10'3 (0-0.9); EOSINOPHILS % (AUTO) 11.5 % (0-6); HEMATOCRIT 37.5 % (35.0-45.0); HEMOGLOBIN 12.7 g/dl (12.0-16.0); LYMPHOCYTES # (AUTO) 1.2 X10'3 (1.1-4.8); LYMPHOCYTES % (AUTO) 25.4 % (21-51); MONOCYTES # (AUTO) 0.4 X10'3 (0-0.9); MONOCYTES % (AUTO) 7.5 % (2-12); NEUTROPHILS # (AUTO) 2.6 X10'3 (1.8-7.7); NEUTROPHILS % (AUTO) 54.9 % (42-75); PLATELET COUNT 260 X10'3 (140-440); RED BLOOD COUNT 4.12 X10'6 (4.20-5.60); RED CELL DISTRIBUTION WIDTH 13.3 % (11.5-14.5); WHITE BLOOD COUNT 4.7 X10'3 (4.5-11.0)
[2022-07-12 10:35] LABS: ALANINE AMINOTRANSFERASE 53 U/L (12-78); ALBUMIN 4.1 G/DL (3.4-5.0); ALBUMIN/GLOBULIN RATIO 1.3 (1.1-1.5); ALKALINE PHOSPHATASE 94 IU/L (46-116); ANION GAP 6 (8-16); ASPARTATE AMINO TRANSFERASE 30 U/L (10-37); BILIRUBIN,TOTAL 0.3 MG/DL (0.1-1.0); BLOOD UREA NITROGEN 16 MG/DL (7-18); BUN/CREATININE RATIO 13.7 (10.0-20.0); CALCIUM 9.4 MG/DL (8.5-10.1); CHLORIDE 105 MMOL/L (99-107); CREATININE 1.17 MG/DL (0.40-0.90); GLUCOSE 109 MG/DL (70-104); POTASSIUM 4.6 MMOL/L (3.5-5.1); SODIUM 140 MMOL/L (135-145); TOTAL CARBON DIOXIDE 29.3 MMOL/L (24-32); TOTAL PROTEIN 7.3 G/DL (6.4-8.2); eGFR 47 ML/MIN
== END 2022-07-12 23:59 | disposition home or self-care (01) ==
LOC: LAB 09:42
PROVIDERS: ATTEND Internal Medicine Hematology & Oncology
DX: C21.1 Malignant neoplasm of anal canal (principal)
CPT/HCPCS: 36415; 80053; 82378; 85025

== ENCOUNTER 2022-07-13 10:50 | Outpatient (CLI) | payer OTHER, MEDICAID | END 2022-07-13 23:59 | disposition home or self-care (01) | LOC: VAS 10:50 | PROVIDERS: ATTEND Physician Assistant | DX: M79.89 Other specified soft tissue disorders (principal); R25.2 Cramp and spasm | CPT/HCPCS: 93971 ==

== ENCOUNTER 2022-10-07 13:07 | Emergency (ER) | payer BC, MEDICAID ==
[~2022-10-07] VITALS: Ht 172.7 cm; Wt 89.0 kg
[~2022-10-07 13:07] MED LIST changes: -GABA-534 PO; +GABA-535 PO
[2022-10-07 16:41] VITALS: BP 132/74; PULSE 74; RESP 16; TEMP 98; O2SAT 99
--- NOTE | 2022-10-07 16:41 | NUR ---
Re-vitaled patient and patient chose not to stay due to length of stay for seeing a provider.
== END 2022-10-07 16:42 | disposition left against medical advice (07) ==
LOC: ER 13:08
DX: M25.561 Pain in right knee (principal); Z53.21 Procedure and treatment not carried out due to patient leaving prior to being seen by health care provider
CPT/HCPCS: 73564; 99281

== ENCOUNTER 2022-10-08 06:17 | Emergency (ER) | payer BC, MEDICAID ==
[~2022-10-08] VITALS: Ht 167.6 cm; Wt 88.6 kg
[2022-10-08 06:20] VITALS: BP 154/65; PULSE 81; RESP 16; TEMP 98.2; O2SAT 97
== END 2022-10-08 07:59 | disposition home or self-care (01) ==
LOC: ER 06:17
DX: M25.561 Pain in right knee (principal); E11.22 Type 2 diabetes mellitus with diabetic chronic kidney disease; N18.9 Chronic kidney disease, unspecified; Z88.1 Allergy status to other antibiotic agents; Z88.8 Allergy status to other drugs, medicaments and biological substances; Z79.899 Other long term (current) drug therapy; Z90.49 Acquired absence of other specified parts of digestive tract
CPT/HCPCS: 99281

== ENCOUNTER 2024-04-09 06:56 | Inpatient (IN) | payer BC, MEDICAID ==
[~2024-04-09] VITALS: Ht 172.7 cm; Wt 91.5 kg
[2024-04-09 07:34] LABS: BASOPHILS % (AUTO) 0.5 % (0-1); EOSINOPHILS # (AUTO) 0.1 X10'3 (0-0.9); EOSINOPHILS % (AUTO) 2.6 % (0-6); HEMATOCRIT 38.3 % (35.0-45.0); HEMOGLOBIN 13.1 g/dl (12.0-16.0); LYMPHOCYTES % (AUTO) 25.3 % (21-51); MEAN CORPUSCULAR HEMOGLOBIN 31.4 PG (27.0-31.0); MEAN CORPUSCULAR HGB CONC 34.3 g/dL (33.0-36.5); MEAN CORPUSCULAR VOLUME 91.6 FL (78-98); MONOCYTES # (AUTO) 0.2 X10'3 (0-0.9); MONOCYTES % (AUTO) 6.1 % (2-12); NEUTROPHILS # (AUTO) 2.6 X10'3 (1.8-7.7); NEUTROPHILS % (AUTO) 65.5 % (42-75); PLATELET COUNT 225 X10'3 (140-440); RED BLOOD COUNT 4.19 X10'6 (4.20-5.60); RED CELL DISTRIBUTION WIDTH 13.3 % (11.5-14.5)
[2024-04-09 07:41] LABS: APTT 26 SECONDS (22-32)
[2024-04-09 07:42] LABS: ANION GAP 10 (8-16); BLOOD UREA NITROGEN 20 MG/DL (7-18); CALCIUM 9.2 MG/DL (8.5-10.1); CHLORIDE 104 MMOL/L (99-107); GLUCOSE 112 MG/DL (70-104); POTASSIUM 4.1 MMOL/L (3.5-5.1); SODIUM 139 MMOL/L (135-145); TOTAL CARBON DIOXIDE 24.7 MMOL/L (24-32); eCRCL 57 ML/MIN; eGFR 56 ML/MIN
[2024-04-09] MEDS ORDERED: iohexol 350MG/ML 100ml bottle IV ONE (09:07)
[2024-04-09] MEDS ORDERED: GABA300T28 PO (11:01)
[2024-04-09] MEDS ORDERED: magnesium sulf-water 2g/50mL 50 ML IV PRN (11:20)
[2024-04-09] MEDS ORDERED: potassium Cl 40MEQ/1/2NS 520ml 520 ML IV PRN (11:20)
[2024-04-09] MEDS ORDERED: mag hydrox/Alum hydrox/simeth 30ml oral suspension PO PRN (11:20)
[2024-04-09] MEDS ORDERED: potassium Cl 20 mEq SR tablet PO PRN ×2 (11:20)
[2024-04-09] MEDS ORDERED: ondansetron/PF 4mg/2ml inj IV PRN (11:20)
[2024-04-09] MEDS ORDERED: magnesium sulf-water 4G/100mL 100 ML IV PRN (11:20)
[2024-04-09] MEDS ORDERED: magnesium Cl slow-release 64mg tablet PO PRN (11:20)
[2024-04-09 11:55] LABS: HEMOGLOBIN A1C 5.5 % (4.5-6.2)
[2024-04-09] MEDS: normal saline 1000ml 1,000 ML IV SCH (14:22)
[2024-04-09 16:11] VITALS: BP 181/81; PULSE 73; RESP 18; TEMP 98.6; O2SAT 94
[2024-04-09 18:00] VITALS: BP 181/81; PULSE 75; RESP 20; TEMP 98.6; O2SAT 96
[2024-04-09] MEDS: acetaminophen 325mg tablet PO PRN (18:00)
[2024-04-09] MEDS ORDERED: ESTR0.5T28 PO (19:22)
[2024-04-09] MEDS ORDERED: PROG200C11 PO (19:22)
[2024-04-09 20:00] VITALS: BP 155/76; PULSE 85; RESP 16; RESP 20; TEMP 98.6; O2SAT 96; O2SAT 98
[2024-04-09] MEDS: K and/or MAG REPLACEMENT MC SCH (20:00)
[2024-04-09] MEDS: gabapentin 300mg capsule PO SCH (21:00)
[2024-04-09 22:00] VITALS: BP 150/74; PULSE 75; RESP 18; TEMP 97.7; O2SAT 96
[2024-04-10] VITALS (10 sets, daily range): BP systolic 125–171; BP diastolic 63–89; PULSE 70–91; RESP 15–20; TEMP 97.5–98.3; O2SAT 94–98
[2024-04-10] MEDS: ketorolac trometh 15mg/ml vial 15 MG/ML ML IV ONE (05:15)
[2024-04-10 05:27] LABS: BASOPHILS % (AUTO) 0.4 % (0-1); EOSINOPHILS # (AUTO) 0.1 X10'3 (0-0.9); HEMATOCRIT 36.9 % (35.0-45.0); HEMOGLOBIN 12.7 g/dl (12.0-16.0); LYMPHOCYTES % (AUTO) 29.8 % (21-51); MEAN CORPUSCULAR HEMOGLOBIN 31.5 PG (27.0-31.0); MEAN CORPUSCULAR HGB CONC 34.5 g/dL (33.0-36.5); MEAN CORPUSCULAR VOLUME 91.3 FL (78-98); MEAN PLATELET VOLUME 6.7 FL (7.4-10.4); MONOCYTES # (AUTO) 0.2 X10'3 (0-0.9); MONOCYTES % (AUTO) 6.7 % (2-12); NEUTROPHILS # (AUTO) 2.1 X10'3 (1.8-7.7); NEUTROPHILS % (AUTO) 60.1 % (42-75); PLATELET COUNT 216 X10'3 (140-440); RED BLOOD COUNT 4.04 X10'6 (4.20-5.60); RED CELL DISTRIBUTION WIDTH 13.1 % (11.5-14.5); WHITE BLOOD COUNT 3.4 X10'3 (4.5-11.0)
[2024-04-10 05:45] LABS: CHOL/HDL RATIO 4.5 (0.00-4.99); CHOLESTEROL 222 MG/DL (0-200); HDL CHOLESTEROL 49 MG/DL (35-60); LDL CHOLESTEROL 136 MG/DL (50-100); TRIGLYCERIDES 144 MG/DL (20-135)
[2024-04-10] MEDS: amLODIPine 5mg tablet PO ONE (08:00)
[2024-04-10] MEDS: busPIRone 15mg tablet PO SCH ×2 (08:46→15:32)
[2024-04-10] MEDS: clopidogrel 75mg tablet PO SCH (08:46)
[2024-04-10] MEDS: atorvastatin 20mg tablet PO SCH (08:46)
[2024-04-10] MEDS: aspirin 81mg, enteric-coated 1 TAB TABLET.DR PO SCH (08:46)
[2024-04-10] MEDS: pantoprazole 40mg Tablet.DR PO SCH (08:46)
[2024-04-10] MEDS: PARoxetine 10mg tablet PO SCH (08:46)
[2024-04-10] MEDS: losartan 25mg tablet PO SCH (08:49)
[2024-04-10] MEDS: amLODIPine 5mg tablet PO SCH (10:38)
[2024-04-10] MEDS: furosemide 20 MG/2 ML vial IV ONE (10:48)
[2024-04-10 11:31] LABS: PRO BRAIN NATRIURETIC PEPTIDE 184 PG/ML (0-125)
[2024-04-10] MEDS: furosemide 20 MG/2 ML vial IV SCH (20:12)
[2024-04-10 22:05] LABS: D-DIMER 0.23 MG/L FEU (0-0.50)
[2024-04-11] VITALS (8 sets, daily range): BP systolic 114–161; BP diastolic 64–76; PULSE 79–97; RESP 16–20; TEMP 97.2–98.2; O2SAT 94–96
[2024-04-11 05:51] LABS: BASOPHILS % (AUTO) 0.3 % (0-1); EOSINOPHILS # (AUTO) 0.1 X10'3 (0-0.9); EOSINOPHILS % (AUTO) 2.8 % (0-6); HEMATOCRIT 38.3 % (35.0-45.0); HEMOGLOBIN 13.3 g/dl (12.0-16.0); LYMPHOCYTES # (AUTO) 1.2 X10'3 (1.1-4.8); LYMPHOCYTES % (AUTO) 25.8 % (21-51); MEAN CORPUSCULAR HEMOGLOBIN 31.7 PG (27.0-31.0); MEAN CORPUSCULAR HGB CONC 34.7 g/dL (33.0-36.5); MEAN CORPUSCULAR VOLUME 91.5 FL (78-98); MEAN PLATELET VOLUME 7.4 FL (7.4-10.4); MONOCYTES # (AUTO) 0.4 X10'3 (0-0.9); MONOCYTES % (AUTO) 7.6 % (2-12); NEUTROPHILS # (AUTO) 3.1 X10'3 (1.8-7.7); NEUTROPHILS % (AUTO) 63.5 % (42-75); PLATELET COUNT 234 X10'3 (140-440); RED BLOOD COUNT 4.18 X10'6 (4.20-5.60); RED CELL DISTRIBUTION WIDTH 13.3 % (11.5-14.5); WHITE BLOOD COUNT 4.8 X10'3 (4.5-11.0)
[2024-04-11] MEDS: docusate sodium 100mg/10ml UD cup PO SCH (09:20)
[2024-04-11] MEDS ORDERED: MECL-231 PO (10:02)
[2024-04-11] MEDS ORDERED: NOR5T PO (10:02)
[2024-04-11] MEDS ORDERED: LOSA25TA41 PO (10:02)
[2024-04-11] MEDS ORDERED: ASPI-1071 PO (10:02)
[2024-04-11] MEDS ORDERED: ATOR40TA72 PO (10:02)
[2024-04-11] MEDS ORDERED: FURO20TA4 PO (10:25)
[2024-04-11] MEDS ORDERED: LISI10TA27 PO (10:25)
[2024-04-11] MEDS: meclizine 12.5mg tablet PO PRN (14:24)
[2024-04-11] MEDS: magnesium hydroxide 30ml (MOM) UD suspension PO PRN (21:29)
[2024-04-12 05:39] LABS: BASOPHILS % (AUTO) 0.2 % (0-1); EOSINOPHILS # (AUTO) 0.1 X10'3 (0-0.9); EOSINOPHILS % (AUTO) 1.3 % (0-6); HEMATOCRIT 40.2 % (35.0-45.0); HEMOGLOBIN 14.1 g/dl (12.0-16.0); LYMPHOCYTES % (AUTO) 16.4 % (21-51); MEAN CORPUSCULAR HEMOGLOBIN 31.7 PG (27.0-31.0); MEAN CORPUSCULAR HGB CONC 34.9 g/dL (33.0-36.5); MEAN CORPUSCULAR VOLUME 90.8 FL (78-98); MEAN PLATELET VOLUME 7.1 FL (7.4-10.4); MONOCYTES # (AUTO) 0.3 X10'3 (0-0.9); MONOCYTES % (AUTO) 5.8 % (2-12); NEUTROPHILS # (AUTO) 4.5 X10'3 (1.8-7.7); NEUTROPHILS % (AUTO) 76.3 % (42-75); PLATELET COUNT 239 X10'3 (140-440); RED BLOOD COUNT 4.43 X10'6 (4.20-5.60); RED CELL DISTRIBUTION WIDTH 13.1 % (11.5-14.5); WHITE BLOOD COUNT 5.9 X10'3 (4.5-11.0)
[2024-04-12 07:00] VITALS: BP 124/73; PULSE 93; RESP 17; TEMP 98.1; O2SAT 95
[2024-04-12 11:55] VITALS: RESP 16
[2024-04-12] MEDS: diazepam inj 5 MG/ML inj. IV ONE (13:00)
[2024-04-12 19:30] VITALS: BP 127/77; PULSE 94; RESP 16; TEMP 97.9; O2SAT 94
[2024-04-12] MEDS: diazepam inj 5 MG/ML inj. IV PRN (21:21)
[2024-04-12 22:00] VITALS: BP 115/65; PULSE 91; RESP 16; TEMP 98.4; O2SAT 95
[2024-04-13 06:00] VITALS: BP 115/65; PULSE 88; RESP 16; TEMP 97.3; O2SAT 94
[2024-04-13 08:05] LABS: ALBUMIN 3.9 G/DL (3.4-5.0); ANION GAP 11 (8-16); BLOOD UREA NITROGEN 29 MG/DL (7-18); CALCIUM 9.3 MG/DL (8.5-10.1); CHLORIDE 102 MMOL/L (99-107); CREATININE 1.32 MG/DL (0.40-0.90); GLUCOSE 110 MG/DL (70-104); POTASSIUM 4.2 MMOL/L (3.5-5.1); SODIUM 142 MMOL/L (135-145); TOTAL CARBON DIOXIDE 28.9 MMOL/L (24-32); eCRCL 43 ML/MIN; eGFR 41 ML/MIN
[2024-04-13] MEDS ORDERED: acetaminophen 325mg tablet PO PRN (09:30)
[2024-04-13 10:00] VITALS: BP 109/72; PULSE 104; RESP 16; TEMP 98; O2SAT 95
[2024-04-13] MEDS ORDERED: gabapentin 300mg capsule PO SCH (15:16)
[2024-04-13] MEDS ORDERED: DIAZ2TAB PO (17:00)
== END 2024-04-13 15:26 | disposition home or self-care (01) | DRG 69 ==
LOC: ER 06:57 → ED HOLD 10:27 → ORTHO 4S 15:55
PROVIDERS: ADMIT Internal Medicine; ATTEND Internal Medicine
PROC: B3251ZZ Computerized Tomography (CT Scan) of Bilateral Common Carotid Arteries using Low Osmolar Contrast (ICD-10-PCS; principal; 2024-04-09)
PROC: B32G1ZZ Computerized Tomography (CT Scan) of Bilateral Vertebral Arteries using Low Osmolar Contrast (ICD-10-PCS; 2024-04-09)
PROC: B32R1ZZ Computerized Tomography (CT Scan) of Intracranial Arteries using Low Osmolar Contrast (ICD-10-PCS; 2024-04-09)
PROC: B3281ZZ Computerized Tomography (CT Scan) of Bilateral Internal Carotid Arteries using Low Osmolar Contrast (ICD-10-PCS; 2024-04-09)
DX: G45.9 Transient cerebral ischemic attack, unspecified (principal); I16.1 Hypertensive emergency; I13.0 Hypertensive heart and chronic kidney disease with heart failure and stage 1 through stage 4 chronic kidney disease, or unspecified chronic kidney disease; N18.9 Chronic kidney disease, unspecified; I50.9 Heart failure, unspecified; E11.22 Type 2 diabetes mellitus with diabetic chronic kidney disease; F41.9 Anxiety disorder, unspecified; K21.9 Gastro-esophageal reflux disease without esophagitis; Z90.49 Acquired absence of other specified parts of digestive tract; Z88.8 Allergy status to other drugs, medicaments and biological substances; Z88.1 Allergy status to other antibiotic agents; Z79.899 Other long term (current) drug therapy
CPT/HCPCS: 36415; 70450; 70496; 70498; 70551; 71045; 80048; 80061; 82948; 83036; 83880; 85025; 85379; 85610; 85730; 87081; 93005; 93306; 96360; 97530; 99291; G0378; J1885; J1940; J3360; J7030; J8597; Q9967

== ENCOUNTER 2024-11-09 12:03 | Emergency (ER) | payer MEDICARE, BC ==
[~2024-11-09] VITALS: Ht 172.7 cm; Wt 91.5 kg
[~2024-11-09 12:03] MED LIST changes: +ASPI-1071 PO; +ATOR40TA72 PO; -CYCL-1 PO; +DIAZ2TAB PO; +ESTR0.5T28 PO; +FURO20TA4 PO; -GABA-535 PO; +GABA300T28 PO; +LISI10TA27 PO; +MECL-231 PO; +PROG200C11 PO
[2024-11-09 12:13] VITALS: BP 124/65; TEMP 98.2; O2SAT 97
--- NOTE | 2024-11-09 13:25 | Physician Documentation ---
History of Present Illness ~ Chief Complaint: Back Pain Stated Complaint: BACK PAIN Time Seen by MD: 12:38 Primary Medical Doctor: DR[facility] This is a 64-year-old female with a history of lumbar spinal fusion that presents with one-week of progressively worsening low back pain with radiation down left leg, patient reports she has never had pain radiating down her leg before. Patient reports that she did sustain a ground level fall approximately one-week ago around the time the pain began. Patient reports no recent fevers. Patient reports no loss of bowel or bladder control, no new weakness or numbness in her legs, no saddle paresthesia, and no history of IV drug use, cancer, or tuberculosis. Patient reports no other injuries or other acute symptoms or concerns. Patient reports previously prescribed NSAIDs and Flexeril health not fully control pain. Medication Reconciliation Allergies: Coded Allergies: amoxicillin (Unverified Adverse Reaction, Severe, joint pain, 11/09/24) clavulanic acid (Unverified Adverse Reaction, Severe, joint pain, 11/09/24) Scheduled Aspirin (Ecotrin*), 1 TAB PO DAILY Atorvastatin Calcium (Atorvastatin Calcium), 1 TAB PO DAILY Buspirone HCl (Buspirone HCl), 1 TAB PO TID, (Reported) Estradiol (Estradiol), 0.5 MG PO DAILY, (Reported) Furosemide (Furosemide), 2 TAB PO DAILY Gabapentin (Gabapentin ER), 600 MG PO TID, (Reported) Lisinopril (Lisinopril), 10 MG PO DAILY Meclizine Hcl (Meclizine Hcl), 1 TAB PO Q8H Omeprazole (Omeprazole), 1 CAP PO DAILY, (Reported) Paroxetine HCl (Paxil), 1 TAB PO DAILY, (Reported) Progesterone,Micronized (Progesterone), 1 MG PO DAILY, (Reported) Scheduled PRN Diazepam (Valium), 1 TAB PO TID PRN PRN for dizziness/vertigo Diazepam (Diazepam), 1 TAB PO Q8H PRN for muscle spasms Past Medical History Past Medical History: Chronic Kidney Disease, Diabetes, Anxiety Past Surgical History: cholecystectomy, orthopedic surgeries Alcohol Use: None Drug Use: none Lives with: Family Lives In: Home Occupation: employed Review of Systems ROS As stated above in the HPI, otherwise all systems are reviewed and negative. Physical Exam Physical Exam Vital Signs: Temperature: 98.2, Source: Temporal, Heart Rate: 79, Respiratory Rate: 18, BP: 124/65, Pulse Oximetry: 97, Weight: 91.450 Physical Exam VITALS: Reviewed and as above. GENERAL: Alert, nontoxic appearing, no apparent distress. RESPIRATORY: No increased work of breathing, no respiratory distress, speaking in full clear sentences BACK: Lower central and left back tenderness to palpation, no focal central spinal tenderness no step-offs, no crepitus Progress Results/Orders Results/Orders Orders - MYRIAM AVALOS Lumbar Spine Limited (11/09/24 13:29) Completed Orders - MYRIAM AVALOS [employer] Ketorolac Trometh 15mg/Ml Vial (Toradol (11/09/24 13:20) Lumbar Spine Limited (11/09/24 13:29) Hydrocodone/Apap 5/325mg Tab ([place] 5/32 (11/09/24 14:05) Diazepam Tablet (Valium Tablet) (11/09/24 14:15) Vital Signs 11/09/24 11/09/24 11/09/24 12:13 14:29 14:39 Temp 98.2 Pulse 79 Resp 18 15 B/P (MAP) 124/65 Pulse Ox 97 EKG/XRAY/CT/US/VASC/MRI Bone/Soft Tissue X-Ray (Spine) : Additional Comment Exam: LUMBAR SPINE LIMITED INDICATION: Back Pain Post Fall TECHNIQUE: 4 views of the lumbar spine were obtained. COMPARISON: MRI LUMBAR SPINE on DOS: 06/01/21, CT CERVICAL SPINE on DOS: 08/05/19, LUMBAR SPINE COMPLTE on DOS: 03/12/18 FINDINGS: There are no acute fractures or subluxations. Multilevel degenerative changes of the spine. Posterior spinal fixation hardware and intervertebral disc spacer material at L3-L4. Degenerative disc space narrowing at L5-S1. IMPRESSION: No acute fracture or subluxation. Electronically Signed by:CORA KHAN MD Date & Time: 11/09/241340 Dictated by: CORA KHAN MD Dictation date and time: 11/09/24 1341 I have reviewed and agree with the radiology report. I have reviewed and interpreted the imaging as: No vertebral fractures or si gnificant vertebral misalignment Medical Decision Making Findings This is a 64-year-old female with a history of lumbar spinal fusion presented with increased lower back pain with new radiation to left leg, due to onset of pain after a ground level fall imaging was indicated. Imaging did not demonstrate evidence of vertebral fracture or significant vertebral misalignment, it was reassuring patient reported no new weakness or numbness in legs, no loss of bladder or bowel control, and reported no recent fevers and no history of IV drug use, cancer, or tuberculosis. Physical exam demonstrated tenderness in the left lower lumbar back though there was no central spinal tenderness. Patient is otherwise well-appearing and does have follow up with senior communications specialist for further evaluation of worsening low back pain. I doubt spinal fracture, epidural hematoma, epidural abscess, unstable spinal pathology, emergent renal or aortic pathology, or spinal cord compression. Patient was me dicated for pain with diazepam as patient reports NSAIDs and Flexeril has been ineffective, review of records indicated patient had previously been prescribed diazepam which she reports has been effective for control of breakthrough back pain in the past. Patient is otherwise well-appearing and appropriate for outpatient follow up. Upon discharge, the patients pain was controlled, and the patient was ambulatory without a risk of falling. Return precautions were discussed including worsening pain, new/worsening weakness/numbness, difficulty urinating, or incontinence. Patient additionally provided home care instructions and follow up instructions to include falling up as scheduled with primary care and senior communications specialist. Patient verbalized understanding of all discharge instructions and return to care precautions. Differential Dx:Considerations: Include: DJD, Fracture, Musculoskeletal pain, Pyelonephritis, Strain, Urolithiasis, Other (Cauda equina, vertebral fracture,) Departure Time of Disposition: 14:25 Disposition: 01 HOME / SELF CARE / HOMELESS Impression: Primary Impression: Low back pain Qualified Codes: M54.42 - Lumbago with sciatica, left side Condition: Improved Discharge Instructions: Acute Back Pain, Adult Additional Instructions: Please continue use previously prescribed medications for your low back pain, use the prescribed Valium for breakthrough back pain and spasms, please follow up with your spine surgeon as scheduled. Do not use opioids or drink alcohol while taking the Valium, do not mix the Valium with muscle relaxers. Please follow up with your primary care provider in the next few days. Please return to the emergency department for any new or worsening concerning symptoms. Referrals: NO PRIMARY CARE PROVIDER (PCP) Prescriptions Diazepam (Diazepam) 2 Mg Tablet 1 TAB PO Q8H PRN for muscle spasms for 3 Days, #9 TAB 0 Refills Prov: MYRIAM AVALOS 11/09/24 Education Educated: Patient Educated regarding: diagnosis, treatment, prognosis, need for follow up Signature Scribe Signature: No scribe Attestation: The note accurately reflects work and decisions made by me.KIET Hess 11/10/24 10:15 MYRIAM AVALOS Nov 09, 2024 13:25
[2024-11-09] MEDS: ketorolac trometh 15mg/ml vial 15 MG/ML ML IM ONE (13:37)
--- NOTE | 2024-11-09 13:43 | RADIOLOGY REPORT ---
INDICATION: Back Pain Post Fall TECHNIQUE: 4 views of the lumbar spine were obtained. COMPARISON: MRI LUMBAR SPINE on DOS: 06/01/21, CT CERVICAL SPINE on DOS: 08/05/19, LUMBAR SPINE COMPLTE on DOS: 03/12/18 FINDINGS: There are no acute fractures or subluxations. Multilevel degenerative changes of the spine. Posterior spinal fixation hardware and intervertebral disc spacer material at L3-L4. Degenerative disc space narrowing at L5-S1. IMPRESSION: No acute fracture or subluxation.
[2024-11-09] MEDS ORDERED: HYDROcodone/acetaminophen 5mg/325mg tablet PO ONE (14:05)
[2024-11-09] MEDS ORDERED: DIAZ2TAB3 PO (14:24)
[2024-11-09 14:29] VITALS: RESP 15
== END 2024-11-09 14:34 | disposition home or self-care (01) ==
LOC: ER 12:03
DX: M54.50 Low back pain, unspecified (principal); E11.22 Type 2 diabetes mellitus with diabetic chronic kidney disease; F41.9 Anxiety disorder, unspecified; N18.9 Chronic kidney disease, unspecified; Z88.0 Allergy status to penicillin; Z90.49 Acquired absence of other specified parts of digestive tract; Z79.82 Long term (current) use of aspirin
CPT/HCPCS: 72100; 96372; 99283; J1885